=== PATIENT | male | born 1995 | race Caucasian/White ===

== ENCOUNTER 2019-04-24 19:12 | Emergency (ER) | payer MEDICAID, OTHER ==
[~2019-04-24] VITALS: Ht 190.5 cm; Wt 92.4 kg
[~2019-04-24 19:12] MED LIST: IBUP-1542 PO
[2019-04-24 19:24] VITALS: PULSE 91; RESP 20; Ht 190.5 cm; Wt 92.4 kg
[2019-04-24] MEDS ORDERED: IBUPROFEN 600 MG TAB PO ONE (21:30)
[2019-04-24] MEDS ORDERED: IBUP-1542 PO (22:02)
--- NOTE | 2019-04-25 04:33 | ERD ---
ER Documentation Chief Complaint Chief Complaint twisted right ankle while playing basketball yesterday HPI 23-year-old male presenting to the emergency department with complaints of right ankle pain after accidentally inverting it while running during basketball game yesterday. He reports intermittent pain which is worse with walking and rated 6/10 in severity currently. He tried no medication for relief of symptoms. He denies any head injury or loss of consciousness or other symptoms or injuries at this time. ROS All systems reviewed and are negative except as per history of present illness. Medications Home Meds Active Scripts Ibuprofen* (Motrin*) 600 Mg Tab, 600 MG PO Q6, #30 TAB Prov:TERRI RODRIGUEZ PA-C 04/24/19 Ibuprofen* (Motrin*) 600 Mg Tab, 600 MG PO Q6, #14 TAB Prov:DARRIUS CONKLIN MD 02/10/16 Allergies Allergies: Coded Allergies: No Known Drug Allergies (Verified Allergy, Unknown, 04/24/19) PMhx/Soc History of Surgery: No Anesthesia Reaction: No Hx Neurological Disorder: No Hx Respiratory Disorders: Yes (asthma) Hx Cardiac Disorders: No Hx Psychiatric Problems: No Hx Miscellaneous Medical Probl: No Hx Alcohol Use: No Hx Substance Use: No Hx Tobacco Use: No Smoking Status: Never smoker FmHx Family History: No diabetes Physical Exam Vitals Vital Signs Date Temp Pulse Resp B/P (MAP) Pulse Ox O2 O2 Flow FiO2 Time Delivery Rate 04/24/19 98.6 91 20 99 19:24 Physical Exam Const: No acute distress Head: Atraumatic Eyes: Normal Conjunctiva ENT: Normal External Ears, Nose and Mouth. Neck: Full range of motion. No meningismus. Resp: No respiratory distress. Abd: Soft, non tender, non distended. Normal bowel sounds Skin: No petechiae or rashes Ext: Tenderness to palpation and soft tissue swelling of the lateral malleolus of the right ankle. Limited range of motion of the right ankle secondary to pain. Patient is neurovascularly intact to the right lower extremity. 2+ DP pulses of the right foot. Neur: Awake and alert Psych: Normal Mood and Affect Results 24 hrs Current Medications Medications Dose Sig/Rickey Start Time Status Last (Trade) Ordered Route PRN Stop Time Admin Dose Reason Admin Ibuprofen 600 mg ONCE ONCE 04/24/19 DC 04/24/19 (Motrin) PO 21:30 04/24/19 21:12 21:31 [place] [id number] Radiology Main Line: [phone] DIAGNOSTIC IMAGING REPORT Patient: WILDA NEIL : 1995 Age: 23 Sex: M MR #: [id number] DOS: 04/24/19 0000 Ordering MD: TERRI RODRIGUEZ PA-C Location: [facility] Room/Bed: PROCEDURE: XR Right Ankle. CLINICAL INDICATION: Trauma TECHNIQUE: AP, oblique and lateral views of the right ankle were performed. COMPARISON: None. FINDINGS: There is normal mineralization and alignment. No acute fracture or osseous lesion is identified. The joints are normal. There is lateral malleolar soft tissue swelling. IMPRESSION: Right lateral malleolar soft tissue swelling. No fracture or dislocation . .Talha Leigh MD, MD Date Time Electronically viewed and signed by .Talha Leigh MD, MD on 04/24/2019 21:58 .A/ CC: TERRI RODRIGUEZ PA-C [id number] Procedures/MDM 23-year-old male presented to the emergency department with signs and symptoms most consistent with right ankle sprain. X-ray was negative for sign of fracture. Patient required Garrett wrap for compression of right ankle sprain. He was given crutches with training.Splint Assessment: Neurovascularly intact post splint placement with good fit. Patient's extremity symptoms have stabilized while they have been evaluated in the department and are appropriate for outpatient follow up. No evidence of compartment syndrome, neurologic injury, vascular injury, open joint, open fracture, tendon laceration, or foreign body. No evidence of life- threatening pathology at time of discharge. Pt/family in agreement with discharge plan/diagnosis. Pt/family advised to return immediately with any new or worsening symptoms. Follow-up with primary care physician within the next 1- 2 days. Departure Diagnosis: Primary Impression: Right ankle sprain Condition: Fair Patient Instructions: Self-Care for Strains and Sprains Referrals: [facility] YOU HAVE RECEIVED A MEDICAL SCREENING EXAM AND THE RESULTS INDICATE THAT YOU DO NOT HAVE A CONDITION THAT REQUIRES URGENT TREATMENT IN THE EMERGENCY DEPARTMENT. FURTHER EVALUATION AND TREATMENT OF YOUR CONDITION CAN WAIT UNTIL YOU ARE SEEN IN YOUR DOCTORS OFFICE WITHIN THE NEXT 1-2 DAYS. IT IS YOUR RESPONSIBILITY TO MAKE AN APPOINTMENT FOR FOLOW-UP CARE. IF YOU HAVE A PRIMARY DOCTOR --you should call your primary doctor and schedule an appointment IF YOU DO NOT HAVE A PRIMARY DOCTOR YOU CAN CALL OUR PHYSICIAN REFERRAL HOTLINE AT IF YOU CAN NOT AFFORD TO SEE A PHYSICIAN YOU CAN CHOSE FROM THE FOLLOWING [facility] [address] [facility]. [facility] [address] [facility]. [facility] [address] [facility] [address] [facility]. [facility] [address] [facility]. [facility]. [address] Additional Instructions: Call your primary care doctor TOMORROW for an appointment during the next 1-2 days.See the doctor sooner or return here if your condition worsens before your appointment time. TERRI RODRIGUEZ PA-C Apr 25, 2019 04:33
== END 2019-04-24 22:20 | disposition home or self-care (01) ==
LOC: FTE 19:12
DX: S93.401A Sprain of unspecified ligament of right ankle, initial encounter (principal); J45.909 Unspecified asthma, uncomplicated; X50.1XXA Overexertion from prolonged static or awkward postures, initial encounter; Y92.310 Basketball court as the place of occurrence of the external cause
CPT/HCPCS: 73610; Z7502; Z7610